=== PATIENT | male | born 1985 | race Caucasian/White ===

== ENCOUNTER 2023-03-28 00:01 | Emergency (ER) | payer OTHER ==
[~2023-03-28] VITALS: Ht 167.6 cm; Wt 67.7 kg
[2023-03-28 01:05] LABS: BASO # 0.04 K/mm3 (0.02-0.10); EOS # 0.04 K/mm3 (0.04-0.40); EOS % 0.5 % (0.0-4.0); HEMATOCRIT 43.1 % (42.0-52.0); HEMOGLOBIN 14.7 g/dL (13.5-18.0); LYMPH# 1.12 K/mm3 (1.50-4.00); MEAN CELL VOLUME 92 fl (78-100); MEAN CORPUSCULAR HEMOGLOBIN 31 pg (27-31); MEAN CORPUSCULAR HGB CONC 34 g/dL (33-37); MEAN PLATELET VOLUME 11.5 fl (7.4-10.4); MONO # 0.42 K/mm3 (0.20-0.80); NEU # 6.54 K/mm3 (1.40-6.50); PLATELET COUNT 227 K/mm3 (130-400); RED BLOOD COUNT 4.68 M/mm3 (4.20-5.60); RED CELL DISTRIBUTION WIDTH 13.6 % (11.5-14.5); WHITE BLOOD COUNT 8.2 K/mm3 (4.8-10.8)
[2023-03-28 01:10] LABS: ALBUMIN 4.3 g/dL (3.5-5.0)
[2023-03-28 01:12] LABS: CALCIUM 9.4 mg/dL (8.3-10.5)
[2023-03-28 01:15] LABS: TOTAL BILIRUBIN 1.1 mg/dL (0.2-1.2)
[2023-03-28 02:30] VITALS: BP 102/65
[2023-03-28] MEDS ORDERED: ZOFRAN ODT4 MG PO (02:36)
== END 2023-03-28 03:13 | disposition home or self-care (01) ==
LOC: ED 00:01
PROVIDERS: Physician Assistant
DX: R11.2 Nausea with vomiting, unspecified (principal); R10.9 Unspecified abdominal pain; Z28.310 Unvaccinated for COVID-19; Z98.84 Bariatric surgery status
CPT/HCPCS: J2405; J7040

== ENCOUNTER 2023-05-13 20:01 | Emergency (ER) | payer OTHER ==
[~2023-05-13] VITALS: Ht 167.6 cm; Wt 68.9 kg
[~2023-05-13 20:01] MED LIST: ZOFRAN ODT4 MG PO
[2023-05-13 20:29] LABS: BASO # 0.06 K/mm3 (0.02-0.10); EOS # 0.07 K/mm3 (0.04-0.40); EOS % 0.8 % (0.0-4.0); HEMATOCRIT 43.9 % (42.0-52.0); HEMOGLOBIN 14.6 g/dL (13.5-18.0); MEAN CELL VOLUME 94 fl (78-100); MEAN CORPUSCULAR HEMOGLOBIN 31 pg (27-31); MEAN CORPUSCULAR HGB CONC 33 g/dL (33-37); MEAN PLATELET VOLUME 10.9 fl (7.4-10.4); MONO # 0.73 K/mm3 (0.20-0.80); NEU # 4.32 K/mm3 (1.40-6.50); PLATELET COUNT 288 K/mm3 (130-400); RED BLOOD COUNT 4.65 M/mm3 (4.20-5.60); WHITE BLOOD COUNT 8.5 K/mm3 (4.8-10.8)
[2023-05-13 20:35] LABS: ALBUMIN 4.3 g/dL (3.5-5.0)
[2023-05-13 20:37] LABS: CALCIUM 9.2 mg/dL (8.3-10.5)
[2023-05-13 20:40] LABS: TOTAL BILIRUBIN 0.7 mg/dL (0.2-1.2)
[2023-05-13 21:49] VITALS: BP 109/59
== END 2023-05-13 21:52 | disposition home or self-care (01) ==
LOC: ED 20:01
PROVIDERS: Family Medicine
DX: R10.13 Epigastric pain (principal); R11.2 Nausea with vomiting, unspecified; Z98.84 Bariatric surgery status
CPT/HCPCS: J2270; J2765; J7030